=== PATIENT | male | born 2000 | race Caucasian/White ===

== ENCOUNTER 2021-07-22 21:49 | Emergency (ER) | payer OTHER ==
[2021-07-22 22:05] VITALS: BP 118/64; PULSE 87; TEMP 100.6; BMI 21.7
[2021-07-22] MEDS ORDERED: AMOXICILLIN 500 MG CAPSULE (FP) PO ONE (22:22)
[2021-07-22] MEDS ORDERED: IBUPROFEN 600 MG TABLET (FP) PO ONE ×2 (22:24→22:34)
[2021-07-22] MEDS ORDERED: AMOXICILLIN 250 MG CAPSULE ONE (22:34)
== END 2021-07-22 22:43 | disposition home or self-care (01) ==
LOC: FER 21:49
DX: J02.9 Acute pharyngitis, unspecified (principal); R50.9 Fever, unspecified
CPT/HCPCS: 36415; 86308; 99283-25

== ENCOUNTER 2023-06-17 18:20 | Emergency (ER) | payer OTHER ==
[2023-06-17 18:28] VITALS: BP 129/82; PULSE 62; RESP 18; TEMP 97.6; BMI 21.7
[2023-06-17] MEDS: IBUPROFEN 600 MG TABLET (FP) PO ONE (18:58)
[2023-06-17] MEDS ORDERED: IBUPROFEN 600 MG TABLET (FP) PO ONE (18:59)
== END 2023-06-17 19:40 | disposition home or self-care (01) ==
LOC: FER 18:20
DX: R10.32 Left lower quadrant pain (principal)
CPT/HCPCS: 36415; 81003; 87491; 87591; 99283-25